=== PATIENT | male | born 2000 | race Caucasian/White ===

== ENCOUNTER 2021-11-13 01:00 | Emergency (ER) | payer OTHER, BC, SELFPAY ==
[2021-11-13 01:01] VITALS: BP 161/84; PULSE 90; RESP 18; TEMP 36.7; O2SAT 98
[2021-11-13 01:02] VITALS: BP 161/84; PULSE 90; RESP 18; TEMP 36.7; O2SAT 98; BMI 27.6
[2021-11-13] MEDS: Cephalexin 250 MG Capsule 500 MG PO (01:23)
--- NOTE | 2021-11-13 01:24 | EX.ED.DYSGE1 ---
HPI History of Present Illness Chief Complaint: Rash Informant: patient Narrative Narrative: Patient is a 20-year-old male without any significant past medical history presenting with rash. Patient started with a spot on his right calf that has now been persistently draining honey colored material. He states it is itchy and uncomfortable. He tried putting on an antifungal cream that he had from a couple years ago from when he had ringworm. Is not helped and now he has other spots patching up in all of his extremities. He states they're slightly itchy but not painful. Does not have any other drainage. No known sick contacts. No mouth sores. No fevers or chills. No other complaints at this time. Patient states about 3 weeks ago he was placed on a course of Bactrim for hemospermia but that has since resolved. Denies any other signs or complaints. PFSH PFSH Home Medications azithromycin [Zithromax] 250 mg PO DAILY #5 tab 04/08/17 [Rx Last Taken Unknown] fexofenadine-pseudoephedrine [Abi-D 12 Hour Tablet] 1 ea PO DAILY 04/08/17 [History Last Taken Unknown] cephalexin 500 mg PO Q6 #28 cap 11/13/21 [Rx Last Taken Unknown] mupirocin 1 applic TOPICAL TID #1 tube 11/13/21 [Rx Last Taken Unknown] Allergy/AdvReac Type Severity Reaction Status Date / Time amoxicillin Allergy Hives Verified 04/08/17 22:25 acetaminophen [From Tylenol] AdvReac Nausea Verified 04/08/17 22:25 Social History Smoking Status: Never smoker ROS ROS ED Constitutional Constitutional ED: Denies chills or fever(s) Eyes Eyes: Reports other Details: No eye discharge ; Denies blurry vision ENT ENT ED: Denies ear pain or sore throat Cardiovascular Cardiovascular: Denies chest pain Respiratory/Chest Respiratory/Chest: Denies dyspnea Musculoskeletal Musculoskeletal: Denies arthralgias or myalgias Integumentary Reports rash; Denies abscess or Abrasions Neurologic Neurologic: Denies headache(s), paresthesias or weakness EXAM Physical Exam Const Vital Signs: 11/13/21 01:01 11/13/21 01:02 11/13/21 01:49 Temperature 98.1 F 98.1 F Temperature Source Temporal Temporal Pulse Rate 90 90 88 Respiratory Rate 18 18 17 Blood Pressure 161/84 H 161/84 H 151/80 H Blood Pressure Mean 109 109 Pulse Ox 98 98 98 Oxygen Delivery Method Room Air Room Air Positive well nourished and well developed General Appearance ED: well developed HEENT Negative for trauma Eyes PERRL and EOMs intact bilaterally Eyes Narrative: Normal conjunctiva, no discharge appreciated Neck supple Neck Narrative: Normal range of motion Resp normal respiratory effort Cardio regular rate Extremity normal to inspection General Extremety ED: Negative for edema or tenderness General Extremity: Negative for edema Neuro oriented x3 Sensorium / Orientation: alert Motor Exam: Negative for general weakness Skin Skin Narrative: Patient has irregular 5 cm diameter circumferential area of erythema with central area of slight desquamation and crusting. No associated lipogenic streaking. No fluctuance or induration appreciated. No warmth. Patient also has scattered subcentimeter irregular areas of erythema that are slightly raised on all other extremities. No confluence is appreciated. No petechia. Negative Nikolsky sign. MDM MDM MDM Narrative Medical decision making narrative: Patient evaluated for 1 week of rash that is worsening and now spreading. The largest area on his right calf appears to have drainage and is consistent with impetigo. I suspect he started have disseminated impetigo. He'll be started on Keflex. He has a history of a rash with amoxicillin as a baby so we will monitor him for about 30 minutes after receiving Keflex to ensure no further allergic reaction. I have a low suspicion of allergic reaction given the low cross-reactivity between cephalosporins and penicillins. Patient is also given a prescription for mupirocin ointment. This does not appear consistent with tinea or other more severe rash. This is not consistent with urticaria. Patient is encouraged to follow-up with his primary care doctor next week for repeat evaluation. He is counseled on return precautions. He verbalized agreement understand this plan. Discharge Plan Triage Chief Complaint: Rash ED Provider: Sheryl Heard Dx/Rx/DC Orders Clinical Impression: Impetigo Instructions: ED Impetigo Prescriptions: New cephalexin [cephalexin] 500 MG capsule 500 mg PO Q6 Qty: 28 RF: 0 mupirocin [mupirocin] 1 APPLIC ointment 1 applic topical TID Qty: 1 RF: 0 No Action fexofenadine-pseudoephedrine [Abi-D 12 Hour] 1 EACH tablet extended release 12 hr 1 ea PO DAILY RF: 0 azithromycin [Zithromax] 250 MG tablet 250 mg PO DAILY Qty: 5 RF: 0 Primary Care Provider: Nestor Rhodes Referrals: Nestor Rhodes DO [Primary Care Provider] - Disposition Disposition: Home, Self Care Discharge Date/Time: 11/13/21 01:50
[2021-11-13 01:49] VITALS: BP 151/80; PULSE 88; RESP 17; O2SAT 98
== END 2021-11-13 01:50 | disposition home or self-care (01) ==
PROVIDERS: Emergency Provider Emergency Medicine; PCP Pediatrics; Visit Provider Emergency Medicine
DX: L01.00 Impetigo, unspecified (principal); Z79.899 Other long term (current) drug therapy
CPT/HCPCS: 99283

== ENCOUNTER 2022-07-13 12:33 | Emergency (ER) | payer OTHER, BC, SELFPAY ==
[2022-07-13 12:35] VITALS: BP 150/104; PULSE 91; RESP 18; TEMP 36.7; O2SAT 99; BMI 27.9
--- NOTE | 2022-07-13 14:48 | EDS_ITS ---
HPI HPI - URI History of Present Illness Chief Complaint: Chest Pain Narrative Narrative: 21-year-old male who is otherwise healthy presenting with chills, body aches, generalized fatigue. This started on Sunday. He was seen yesterday urgent care and put on brompheniramine/Sudafed. He states he had a sore throat initially on Sunday which progressed to sinus pressure. He has not had any nasal discharge. He has not had a fever. He is not coughing or short of breath. He states that his anxiety has sudden and he feels like his chest is tight. He does not have any cardiac problems. No history of DVT/PE and no risk factors. He was tested for strep throat yesterday and this was negative. ROS ROS ED Constitutional Constitutional ED: Reports chills and subjective Eyes Eyes: Denies change in vision or diplopia ENT ENT ED: Reports sore throat; Denies rhinorrhea Cardiovascular Cardiovascular: Reports chest pain Respiratory/Chest Respiratory/Chest: Denies cough or dyspnea Gastrointestinal Gastrointestinal: Denies abdominal pain, nausea or vomiting Genitourinary Genitourinary ED: Denies dysuria or hematuria Musculoskeletal Musculoskeletal: Reports myalgias; Denies arthralgias or back pain Integumentary Denies abscess or Abrasions Neurologic Neurologic: Denies headache(s) or paresthesias Psychiatric Psychiatric: Reports anxiety; Denies depression [facility] Medical History Asthma Home Medications [id number] 2 mg-30 mg-10 mg/5 mL oral syrup 5 ml PO Q8H PRN PRN Cough 07/13/22 [History Last Taken Unknown] Allergy/AdvReac Type Severity Reaction Status Date / Time amoxicillin Allergy Hives Verified 07/13/22 12:34 acetaminophen [From Tylenol] AdvReac Nausea Verified 07/13/22 12:34 Social History Smoking Status: Never smoker EXAM Physical Exam Const Vital Signs: 07/13/22 12:35 07/13/22 13:48 Temperature 98.1 F Temperature Source Temporal Pulse Rate 91 Respiratory Rate 18 Respiratory Effort Normal Non-Labored Blood Pressure 150/104 H Blood Pressure Mean 119 Pulse Ox 99 Oxygen Delivery Method Room Air Positive well nourished General Appearance ED: NAD; Negative for pallor HEENT Reports moist mucous membranes normocephalic and atraumatic Throat: posterior oropharynx normal Eyes General Eye ED: Negative for pale conjunctiva or scleral icterus Neck no lymphadenopathy, supple and no meningeal signs Resp normal respiratory effort and clear to auscultation bilaterally Cardio Rate: regular rate Rhythm: regular rhythm GI non-tender Extremity normal to inspection Neuro oriented x3 and CN's II-XII intact bilaterally Sensorium / Orientation: alert Motor Exam: strength 5/5 throughout Psych mental status grossly normal Skin General Skin Exam: Negative for jaundice or pallor MDM MDM MDM Narrative Medical decision making narrative: Patient presenting with chills, body aches, generalized fatigue. He had some sinus pressure that progressed from a sore throat. He is already been tested for strep and this was negative. His HEENT exam is unremarkable. Lungs are cl ear to auscultation bilaterally. His vital signs are normal with exception of a little bit of elevated blood pressure on his initial reading. He did have a rapid COVID and flu swab done today which were negative. I counseled him this is likely viral. I do not think he needs a chest x-ray or cardiac work-up. He agrees. I counseled he will need to rest, stay well-hydrated, alternate Tylenol and ibuprofen. He can take the medication the urgent care gave him. He will probably flareup in 5 to 7 days. Return precautions were discussed. Impression: 1. Chest tightness 2. Viral syndrome Discharge Plan Triage Chief Complaint: Chest Pain ED Provider: Gene Gaines Dx/Rx/DC Orders Instructions: ED Viral Syndrome (Adult) Prescriptions: No Action [id number] 2-30-10 mg/5 mL syrup 5 ml PO Q8H PRN PRN (Reason: Cough) Primary Care Provider: Nestor Rhodes Referrals: Nestor Rhodes DO [Primary Care Provider] - Disposition Disposition: Home, Self Care
== END 2022-07-13 15:30 | disposition home or self-care (01) ==
PROVIDERS: Emergency Provider Student in an Organized Health Care Education/Training Program; PCP Pediatrics; Visit Provider Student in an Organized Health Care Education/Training Program
DX: R07.89 Other chest pain (principal); B34.9 Viral infection, unspecified; Z20.822 Contact with and (suspected) exposure to COVID-19
CPT/HCPCS: 87428; 93005; 99282; A4216

== ENCOUNTER 2023-10-16 06:39 | Emergency (ER) | payer OTHER, BC, SELFPAY ==
[2023-10-16 06:42] VITALS: BP 150/76; PULSE 74; RESP 16; TEMP 36.4; O2SAT 98; BMI 32.3
--- NOTE | 2023-10-16 07:32 | EX.ED.VIS.EY ---
HPI History of Present Illness Chief Complaint: Eye Problem Informant: patient Narrative Narrative: Given exposure bilateral eyes. Works in garage, hydraulic fluid splash. He is wearing his visual glasses. He states a little bit got his eyes. This happened an hour ago. He rinsed with saline. Very minimal symptoms at this time. No blurry vision. No pain. Prior similar symptoms: No PFSH PFSH Medical History Asthma Home Medications pantoprazole 20 mg tablet,delayed release (Protonix) 20 mg PO DAILY 10/16/23 [History Last Taken Unknown] Allergy/AdvReac Type Severity Reaction Status Date / Time amoxicillin Allergy Hives Verified 10/16/23 06:40 acetaminophen [From Tylenol] AdvReac Nausea Verified 10/16/23 06:40 Social History Smoking Status: Never smoker ROS ROS ED Constitutional Constitutional ED: Denies chills, fever(s) or sweats Eyes Eyes: Reports other Details: splash to eyes ; Denies blurry vision or change in vision ENT ENT ED: Denies dysphagia or sore throat Cardiovascular Cardiovascular: Denies chest pain, leg edema, palpitations or racing heartbeat Respiratory/Chest Respiratory/Chest: Denies cough, dyspnea or dyspnea on exertion Gastrointestinal Gastrointestinal: Denies abdominal pain, diarrhea, nausea or vomiting Genitourinary Genitourinary ED: Denies dysuria, hematuria or urinary frequency Musculoskeletal Musculoskeletal: Denies back pain, extremity pain or neck pain Integumentary Denies rash or wounds Neurologic Neurologic: Denies headache(s), paresthesias or weakness EXAM Physical Exam Const Vital Signs: 10/16/23 06:42 Temperature 97.6 F L Temperature Source Temporal Pulse Rate 74 Respiratory Rate 16 Blood Pressure 150/76 H Blood Pressure Mean 100 Pulse Ox 98 Oxygen Delivery Method Room Air Positive well nourished and well developed General Appearance ED: well developed and NAD HEENT Reports moist mucous membranes normocephalic and atraumatic Eyes PERRL, EOMs intact bilaterally and conjunctivae normal Eyes Narrative: No erythema. pH was 7 bilaterally. General Eye ED: Yes normal appearance of both eyes Neck no lymphadenopathy and supple General: Negative for tenderness Chest Wall Chest: Negative for tenderness Resp normal respiratory effort and normal air movement Effort and Inspection: symmetric chest movement; Negative for respiratory distress Cardio regular rate, regular rhythm and no murmurs Peripheral Pulses: pulses 2+ throughout GI normal to inspection, nondistended, normoactive bowel sounds and non-tender Palpation: Negative for guarding or rebound tenderness present Back/Spine no CVA tenderness and no thoracic nor lumbar tenderness Extremity normal to inspection General Extremety ED: Negative for edema or tenderness General Extremity: Negative for edema Neuro oriented x3 and no sensory deficits noted Sensorium / Orientation: awake and alert Skin no rashes or lesions noted and no wounds MDM MDM MDM Narrative Medical decision making narrative: Interventions / MDM: Differential diagnosis: Chemical splash, chemical exposure Diagnosis considered but do not suspect: No clinical conjunctivitis My EKG interpretation: N/A Imaging independently reviewed and interpreted by myself: N/A External documents reviewed: N/A Test considered but not ordered:N/A ED course: Vital stable nontoxic. pH performed 7 bilaterally. He will use rewetting drops as needed. He is cleared back to work. He will follow-up with occupational health. All questions were answered. Re-evaluation: stable Disposition discussed with patient/family/significant other: Patient Case discussed with consulting clinician: N/A This note was generated with [employer] dictation software. It may contain incorrect words, spelling, and punctuation that were not noted in checking the note before signing. Discharge Plan Triage Chief Complaint: Eye Problem ED Provider: Levi Jerry Dx/Rx/DC Orders Clinical Impression: Chemical exposure of eye Instructions: ED Eye Exposure, Chemical Prescriptions: No Action pantoprazole [Protonix] 20 mg tablet,delayed release (DR/EC) 20 mg PO DAILY Primary Care Provider: Care Physician,No Primary Referrals: Care Physician,No Primary [Primary Care Provider] - Activity Restrictions/Additional Instructions: pH is 7 bilaterally. Use rewetting drops as needed. Disposition Disposition: Home, Self Care Discharge Date/Time: 10/16/23 07:45
--- OUTSIDE RECORDS SUMMARY | 2023-10-16 07:49 | XMS RPT_ITS | CCD ---
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 HISTORY Diagnosis Date Environmental allergies NEGATIVE MEDICAL HISTORY PAST SURGICAL HISTORY Procedure Laterality Date NONE Allergies: ALLERGIES Allergen Reactions Amoxicillin Hives Tylenol [Acetaminop* Vomiting Medications: fexofenadine HCl (GUZMAN ALLERGY ORAL) Take by mouth. albuterol-budesonide HFA (AIRSUPRA) 90-80 mcg/actuation inhaler Take 2 Puffs by mouth. Do not take more than 12 inhalations in a 24 hour period. FAMILY HISTORY Problem Relation Age of Onset Kidney Disease Mother other (amyloidois) Mother Asthma Maternal Grandmother Heart Maternal Grandfather Diabetes Maternal Grandfather Employer And Job Title: None on file Years Of Education Completed: Not specified Marital Status: Social History Tobacco Use Smoking status: Never Passive exposure: Yes Smokeless tobacco: Never Tobacco comments: dad smokes outside only Vaping Use Vaping Use: Never used Substance Use Topics Alcohol use: Yes Drug use: No Review of Systems: Review of Systems HENT: Positive for trouble swallowing. Respiratory: Positive for choking and wheezing. Gastrointestinal: Heartburn All other systems reviewed and are negative. Are you taking any blood thinners? No Physical Examination: BP 140/80 Pulse 84 Ht 177.8 cm (5' 10 ) Wt 97.1 kg (214 lb) BMI 30.71 kg/m Physical Exam Constitutional: General: He is not in acute distress. Appearance: Normal appearance. He is normal weight. He is not ill-appearing, toxic-appearing or diaphoretic. HENT: Head: Normocephalic and atraumatic. Nose: Nose normal. Eyes: General: No scleral icterus. Right eye: No discharge. Left eye: No discharge. Extraocular Movements: Extraocular movements intact. Conjunctiva/sclera: Conjunctivae normal. Pupils: Pupils are equal, round, and reactive to light. Cardiovascular: Rate and Rhythm: Normal rate and regular rhythm. Pulses: Normal pulses. Heart sounds: Normal heart sounds. No murmur heard. No friction rub. No gallop. Pulmonary: Effort: No respiratory distress. Breath sounds: Normal breath sounds. No stridor. No wheezing, rhonchi or rales. Chest: Chest wall: No tenderness. Abdominal: General: Abdomen is flat. Bowel sounds are normal. There is no distension. Palpations: Abdomen is soft. There is no mass. Tenderness: There is no abdominal tenderness. There is no right CVA tenderness, left CVA tenderness, guarding or rebound. Hernia: No hernia is present. Musculoskeletal: General: Normal range of motion. Cervical back: Normal range of motion and neck supple. Skin: General: Skin is warm and dry. Neurological: General: No focal deficit present. Mental Status: He is alert and oriented to person, place, and time. Psychiatric: Mood and Affect: Mood normal. Behavior: Behavior normal. Assessment/Plan (R13.14) Pharyngoesophageal dysphagia (primary encounter diagnosis) 1. Pharyngoesophageal dysphagia - EGD DIAGNOSTIC; Future - EGD +/- dilation, r/o EoE, active GERD - Discussed swallowing precautions and provided printed edu handout - Takes Tums 1-2x per month for heartburn with relief I spent a total of 15 minutes on the date of the service which included preparing to see the patient, [id number] patient care, completing clinical documentation, obtaining and/or reviewing separately obtained history, performing a medically appropriate examination, counseling and educating the patient/family/caregiver, ordering medications, tests, or procedures, communicating with other HCPs (not separately reported), independently interpreting results (not separately reported), communicating results to the patient/family/caregiver, and care coordination (not separately reported). Virginia Stewart PA-C August 13, 2023 11:34 AM documented in this encounter [facility] 05-02-2023 Note HNO ID: [id number] Author: Jacek Boland, DO Service: ? Author Type: Physician Type: Progress Notes Filed: 05/02/2023 9:05 AM Note Text: 22 year old male here for evaluation of sensation of food getting stuck in throat at times, mostly with foods like steak, beef and chicken. Has to drink water quickly to get food to wash down. Claritae has had to do Heimlick maneuver Twice on him. Does feel like he gets acid reflux at times but not on medication. No vomiting. No diarrhea or constipation. He does have intermittent anxiety. Getting in July so a lot of stress with wedding planning. Mom is on renal transplant list. Asking about screening tests for diabetes, renal function given mom's history of kidney disease. REVIEW OF SYSTEMS GENERAL: No weight loss, malaise or fevers HEENT: Negative for frequent or significant headaches, No changes in hearing or vision, no nose bleeds or other nasal problems NECK: Negative for lumps, goiter, pain and significant neck swelling RESPIRATORY: Negative for cough, hemoptysis, wheezing, COPD, dyspnea or shortness of breath CARDIOVASCULAR: Negative for chest pain, leg swelling, hypertension, CHF or palpitations GI: See HPI : No history of dysuria, frequency or incontinence MUSCULOSKELETAL: Negative for joint pain or swelling, back pain or muscle pain HEMATOLOGY/LYMPHOLOGY: Negative for prolonged bleeding, bruising easily or swollen nodes ENDOCRINE: Negative for cold or heat intolerance, polyuria, polydipsia and goiter NEURO: No history of headaches, syncope, paralysis, seizures or tremors Physical Exam: Alert, active, in no distress Head: Normocephalic and atraumatic HEENT: Pupils equal and reactive to light, extraocular muscles intact. Tympanic membranes clear with good landmarks. Pharynx pink and moist without exudates or erosions Neck: no adenopathy Lungs: Clear to auscultation with good air exchange. No grunting flaring or retractions Heart: Regular rate and rhythm with normal s1 S2 femoral pulses present Abdomen: Soft, nontender with good bowel sounds in all 4 quadrants. 2 small lipomas on abdominal wall no hepatosplenomegaly Extremities: well perfused. Capillary refill less than 3 seconds Assess: dysphagia with sensation of food getting stuck Family history of diabetes and renal disease Plan; Refer to gastroenterology for evaluation CMP and lipid panel ordered Prevacid 15 mg daily Discussed health care transition to adult care provider Jacek Boland DO [facility] [place] 04-17-2023 Miscellaneous Notes Please triage. I don't see where he is on any medications. Is there something in particular That he is concerned about? He is 22 years old and will need to start transitioning to adult care provider. Jacek Boland DO Discussed with patient. No concerns-he will discuss preferred adult providers at [facility] with Carmelo. Patient verbalizes understanding and has no other questions or concerns at this time.. Me Do we have an update on this? Pt has physical 06/[address] blood work to be done beforehand per patient documented in this encounter [facility] 10-18-2022 Miscellaneous Notes See triage Please triage. documented in this encounter [facility] 07-12-2022 Instructions Magali Aguila APRN.OPTICAL FABRICATOR - 07/12/2022 3:31 PM EDT Rest, increase water intake Motrin or Tylenol as needed for fever or pain. Salt water gargles, chloraseptic spray or lozenges as needed for sore throat. Warm beverages, honey. Nasal saline spray as needed Cool mist humidifier at night A cold normally lasts 7-10 days. If your symptoms are lasting longer, develop fever, or worsening by that time instead of improving then return to clinic or follow up with PCP for re-evaluation. DO NOT take any other OTC cough or cold medication while taking the prescription Bromfed DM. May use advil aleve ibuprofen or tylenol Flonase or Nasonex 2 sprays in each nostril once a day documented in this encounter [facility] 07-12-2022 History of Present illness Narrative Subjective The history is provided by the patient. No wood heel back liner was used. HPI Gray Farmer is a 21 year old male who presents today for CC of sore throat that started in past 24 hours. He is also having sinus pressure, and nasal congestion. He has used Mucinex, with out relief. He denies any known exposure. Declines testing for covid. BP 130/74 Pulse 102 Temp 36.7 C (98.1 F) (Tympanic) Resp 16 Wt 92.6 kg (204 lb 3.2 oz) SpO2 97% BMI 29.30 kg/m Social History Tobacco Use Smoking status: Passive Smoke Exposure - Never Smoker Smokeless tobacco: Never Tobacco comments: dad smokes outside only Substance Use Topics Alcohol use: No Drug use: No PAST MEDICAL HISTORY Diagnosis Date Environmental allergies NEGATIVE MEDICAL HISTORY I have confirmed and edited as necessary, the [facility] Review of Systems Constitutional: Negative for chills and fever. HENT: Positive for congestion, ear pain (pressure), sinus pain and sore throat. Respiratory: Negative for cough, sputum production, shortness of breath and wheezing. Cardiovascular: Negative for chest pain. Musculoskeletal: Negative for myalgias. Neurological: Positive for headaches. Objective Physical Exam Vitals and nursing note reviewed. Constitutional: Appearance: He is not toxic-appearing. HENT: Head: Normocephalic and atraumatic. Right Ear: Ear canal and external ear normal. A middle ear effusion (serous) is present. Tympanic membrane is bulging. Left Ear: Ear canal and external ear normal. A middle ear effusion (serous) is present. Tympanic membrane is bulging. Nose: Mucosal edema, congestion and rhinorrhea present. Right Sinus: No maxillary sinus tenderness or frontal sinus tenderness. Left Sinus: No maxillary sinus tenderness or frontal sinus tenderness. Mouth/Throat: Pharynx: Uvula midline. No oropharyngeal exudate or posterior oropharyngeal erythema. Tonsils: No tonsillar abscesses. Cardiovascular: Rate and Rhythm: Normal rate and regular rhythm. Heart sounds: Normal heart sounds. Pulmonary: Effort: Pulmonary effort is normal. Breath sounds: Normal breath sounds. No decreased breath sounds, wheezing, rhonchi or rales. Lymphadenopathy: Head: Right side of head: No submental, submandibular, tonsillar or preauricular adenopathy. Left side of head: No submental, submandibular, tonsillar or preauricular adenopathy. Cervical: No cervical adenopathy. Right cervical: No superficial cervical adenopathy. Left cervical: No superficial cervical adenopathy. Neurological: Mental Status: He is alert. ASSESSMENT/PLAN: 1. Sore throat - ICD9: 462, ICD10: J02.9 (primary diagnosis) - suspect viral - Alere Strep Test negative, no culture pending - Discussed supportive care treatment with fluids, rest and analgesia. - The patient may also use warm salt water gargles, throat lozenges and/or OTC throat spray as needed. - STREP A MOLECULAR (POC) 2. Nasal congestion - ICD9: 478.19, ICD10: R09.81 3. Sinus pressure - ICD9: 478.19, ICD10: J34.89 4. URI, acute - ICD9: 465.9, ICD10: J06.9 - Discussed viral etiology and rationale for treatment. - Symptomatic treatment with prn analgesia - Supportive care with fluids and rest - Bromfed as ordered - See Patient instructions for comfort measures. Diagnosis and treatment plan were discussed and questions were answered to the patient's satisfaction. Pt acknowledged understanding of concepts and follow up plan. Specific signs and symptoms that would indicate the need for higher level of care were discussed in detail warranting prompt ER evaluation. Magali Aguila APRN.CNP documented in this encounter [facility] 03-29-2022 Miscellaneous Notes If still having blood in semen needs to see TIGRE Pt Advised of MRI And asking what the next steps are Since MRI is negative for the blood in semen pt states you can message him in my chart Left message for patient to return call to office. Josy Parks Cma ----- Message from Loli Ortega DO sent at 03/29/2022 1:25 PM EDT ----- No problems with MRI documented in this encounter [facility] 03-09-2022 Note HNO ID: [id number] Author: RT Aman(R) Service: Radiology Author Type: Tie Man Type: Progress Notes Filed: 03/09/2022 9:35 AM Note Text: Radiology Service Progress Note DATE OF SERVICE: March 09, 2022 TIME: 9:34 AM PATIENT IDENTITY VERIFICATION COMPLETED USING TWO (2) STANDARD IDENTIFIERS: Name and Date of confirmed by patient verbally. FALL SCREENING: Has the patient had 2 falls in the last year or 1 fall with injury or currently using an Ambulatory Assistive Device (Walker, Cane, Wheelchair, Crutches, etc.)? No PATIENT GENDER DATA: Male PATIENT RELEVANT IMPLANT DATA REVIEWED: Yes ALLERGIES: Reviewed and unchanged CONTRAST ALLERGY: NO. EXAM: MRI - CONTRAST TYPE: GROUP II PERIPHERAL IV DATA: Ambulatory: A peripheral IV was started in the Left antecubital site with a Angio cath: 22 gauge. RADIOLOGY DEPARTMENT: MR; Exam(s) Completed: Body: Prostate SIGNATURE: RT Aman(R) PATIENT NAME: Gray Farmer DATE: March 09, 2022 TIME: 9:34 AM [facility] 03-09-2022 History of Present illness Narrative Radiology Service Progress Note DATE OF SERVICE: March 09, 2022 TIME: 9:34 AM PATIENT IDENTITY VERIFICATION COMPLETED USING TWO (2) STANDARD IDENTIFIERS: Name and Date of confirmed by patient verbally. FALL SCREENING: Has the patient had 2 falls in the last year or 1 fall with injury or currently using an Ambulatory Assistive Device (Walker, Cane, Wheelchair, Crutches, etc.)? No PATIENT GENDER DATA: Male PATIENT RELEVANT IMPLANT DATA REVIEWED: Yes ALLERGIES: Reviewed and unchanged CONTRAST ALLERGY: NO. EXAM: MRI - CONTRAST TYPE: GROUP II PERIPHERAL IV DATA: Ambulatory: A peripheral IV was started in the Left antecubital site with a Angio cath: 22 gauge. RADIOLOGY DEPARTMENT: MR; Exam(s) Completed: Body: Prostate SIGNATURE: RT Aman(R) PATIENT NAME: Gray Farmer DATE: March 09, 2022 TIME: 9:34 AM documented in this encounter [facility] 02-20-2022 History of Present illness Narrative Images from the original note were not included. Asthma Home Monitoring Program Breathe Well Outreach Provider Action/FYI: Dr Boland - please review and advise if in agreement with drafted Asthma Action Plan below as patient's health maintenance is flagging due. ACT recently conducted was 22. February 03, 2022 Asthma Action Plan for Gray Farmer GREEN ZONE = GOOD Use these medications everyday! Breathing is good None YELLOW ZONE = CAUTION (An asthma attack is starting) Keep taking your GREEN ZONE medications and add a rescue medication. Cough, wheeze Chest tightness Shortness of breath First sign of a cold FIRST: Albuterol inhaler (Proair or Ventolin): inhale 2 puffs every 4 hours as needed for symptoms. If it has been more than 2 weeks since you last used albuterol please PRIME your inhaler SECOND: If better within an hour, return to green zone If not better in an hour or still needing rescue inhaler in 48 hours, call your provider at [phone]) Start oral steroids: Call if needing to start oral steroids RED ZONE = DANGER Serious asthma attack CALL YOUR PROVIDER NOW! Lots of problems breathing. Albuterol not helping or not lasting 4 hours Hard to walk or talk Ribs or neck muscles show when breathing in Nasal flaring Lips or fingernails turn blue FIRST: Albuterol inhaler: 2 puffs every 15 minutes for 3 doses SECOND: If better continue albuterol every 4 hours If not improved after 15 minutes: GO TO THE EMERGENCY ROOM OR CALL 911 Jacek Boland DO Reason for outreach: Follow up and Asthma Action Plan SIGNATURE: Elsa Palmer RN PATIENT NAME: Gray Farmer DATE: February 20, 2022 TIME: 3:05 PM Images from the original note were not included. Asthma Home Monitoring Program Breathe Well Outreach Provider Action/FYI: Dr Boland - please review asthma action plan below (also ACT received and 22) February 03, 2022 Asthma Action Plan for Gray Farmer GREEN ZONE = GOOD Use these medications everyday! Breathing is good None YELLOW ZONE = CAUTION (An asthma attack is starting) Keep taking your GREEN ZONE medications and add a rescue medication. Cough, wheeze Chest tightness Shortness of breath First sign of a cold FIRST: Albuterol inhaler (Proair or Ventolin): inhale 2 puffs every 4 hours as needed for symptoms. If it has been more than 2 weeks since you last used albuterol please PRIME your inhaler SECOND: If better within an hour, return to green zone If not better in an hour or still needing rescue inhaler in 48 hours, call your provider at [phone]) Start oral steroids: Call if needing to start oral steroids RED ZONE = DANGER Serious asthma attack CALL YOUR PROVIDER NOW! Lots of problems breathing. Albuterol not helping or not lasting 4 hours Hard to walk or talk Ribs or neck muscles show when breathing in Nasal flaring Lips or fingernails turn blue FIRST: Albuterol inhaler: 2 puffs every 15 minutes for 3 doses SECOND: If better continue albuterol every 4 hours If not improved after 15 minutes: GO TO THE EMERGENCY ROOM OR CALL 911 Jacek Boland, DO PCP office - please conduct Asthma Control Test as patient is due. Thank you Patient is currently not eligible for Pediatric Breathe Well Asthma Home Monitoring Program. Patient is not followed by specialty care for asthma. Has not had a prednisone course in the last 6 months. Has not had an admission or ED visit for asthma in the last 12 months. Last ACT on file above 19 indicating well managed asthma. No obvious SDH. However, patient is due for an asthma control test at this time. Per new workflows, RN will route this patients chart to PCP office to complete Asthma Control Test via Phone Call as patient is not due for a WCC but due for Asthma Control Test. If ACT score is 19 or less, please address immediate concerns and route chart to RN PCC for enrollment into Pediatric Breathe Well Program as patient would then qualify. Also due for Asthma Action Plan - RN will Draft and route to PCP for review. Last PCP visit 12/12/2021 (sick visit) Pre employment physical at urgent care 04/[address] Gunn 10/25/2018 Reason for outreach: Health Maintenance Contact made: No contact at this time. SIGNATURE: Elsa Palmer RN PATIENT NAME: Gray Farmer DATE: February 03, 2022 TIME: 9:46 AM documented in this encounter [facility] 02-06-2022 Instructions Almita Dickens APRN.OPTICAL FABRICATOR - 02/06/2022 7:33 PM EDT ASSESSMENT/PLAN: 1. Cervical radiculopathy - ICD9: 723.4, ICD10: M54.12 (primary diagnosis) - XR CERV OTHER 4V AP/LAT/OBL Radiologist RESULT: Alignment: No significant subluxation or scoliosis. Bones: Vertebral bodies and the other included bony structures are negative. Intervertebral discs: Included intervertebral disc spaces are preserved. No osteophytes foramina encroachment noted. Prevertebral soft tissues are within normal limits. LEFT SHOULDER X-RAY SERIES CLINICAL HISTORY: Cervical radiculopathy TECHNIQUE: AP, Grashey, and axillary views COMPARISON: None available. RESULT: No fracture or malalignment. Joint spaces and articular surfaces are preserved. IMPRESSION: Cervical spine: Negative. Left shoulder: Negative. Rn Neonatal Icu: RADHA Transcribe Date/Time: Feb 06 2022 7:23P Dictated by : VANCE MARTÍNEZ MD - Prednisone as prescribed. 2. Acute pain of left shoulder - ICD9: 719.41, ICD10: M25.512 - XR SHOULDER GENERAL 3V OR MORE AP/TRUE AP/OTHER LEFT- See above for radiology interpretation. - Follow-up with your PCP in 3-5 days if symptoms have not improved or sooner if symptoms worsen - Discussed red flags and need for immediate medical evaluation if any occur. - Discussed supportive care treatment with rest and analgesia. - Discussed expected course of illness Almita Dickens APRN.OPTICAL FABRICATOR documented in this encounter [facility] 02-06-2022 History of Present illness Narrative Subjective HPI Gray Farmer is a 21 year old male who presents with left arm pain for the past month. The pain originates from his left shoulder/neck area and radiates to the upper arm. He denies any known injury. He describes the pain as aching, numb/tingly, and tight . He states he noticed it today more than usual and just got tired of it. He occasionally has a popping sensation in his left shoulder. He denies any loss of strength. He has full range of motion. Review of Systems Constitutional: Negative for chills and fever. Respiratory: Negative for shortness of breath. Cardiovascular: Negative for chest pain. Musculoskeletal: Positive for joint pain and neck pain. Negative for falls. Skin: Negative for rash. Neurological: Positive for tingling. Negative for tremors, sensory change and weakness. BP 122/82 Pulse 95 Temp 36.5 C (97.7 F) Resp 21 Wt 91.5 kg (201 lb 12.8 oz) SpO2 99% BMI 28.96 kg/m PAST MEDICAL HISTORY Diagnosis Date Environmental allergies NEGATIVE MEDICAL HISTORY PAST SURGICAL HISTORY Procedure Laterality Date NONE ALLERGIES Amoxicillin and Tylenol [Acetaminophen] MEDICATIONS albuterol HFA (PROVENTIL HFA, VENTOLIN HFA) 90 mcg/actuation inhaler Inhale 2 Puffs as instructed every 4 hours as needed for Wheezing/Shortness of Breath. albuterol (PROVENTIL) 2.5 mg /3 mL (0.083 %) nebulizer solution Use 3 mL via nebulizer every 4 hours as needed for Wheezing/Shortness of Breath. Use over 5-15minutes. iv contrast (will be provided with radiology test) MRI Prostate Inject, intravenously, once for 1 dose. No IV access, insert saline lock prior to the beginning of sedation, infusion, injection of imaging exam. Discontinue saline lock post exam. If Pt. has a central line or IVAD, may access for administration according to line specific nursing protocol. Once exam is complete flush line and de-access according to line specific nursing protocol in the MR contrast administration guidelines link. benzonatate (TESSALON PERLE) 100 mg capsule TAKE 1 CAPSULE BY MOUTH THREE TIMES A DAY NEEDED FAMILY HISTORY Problem Relation Age of Onset Kidney Disease Mother other (amyloidois) Mother Asthma Maternal Grandmother Heart Maternal Grandfather Diabetes Maternal Grandfather Social History Tobacco Use Smoking status: Passive Smoke Exposure - Never Smoker Smokeless tobacco: Never Used Tobacco comment: dad smokes outside only Substance Use Topics Alcohol use: No Drug use: No Objective Physical Exam Vitals and nursing note reviewed. Constitutional: Appearance: Normal appearance. Musculoskeletal: General: Tenderness present. No signs of injury. Skin: General: Skin is warm and dry. Findings: No erythema or rash. Neurological: Mental Status: He is alert. ASSESSMENT/PLAN: 1. Cervical radiculopathy - ICD9: 723.4, ICD10: M54.12 (primary diagnosis) - XR CERV OTHER 4V AP/LAT/OBL Radiologist RESULT: Alignment: No significant subluxation or scoliosis. Bones: Vertebral bodies and the other included bony structures are negative. Intervertebral discs: Included intervertebral disc spaces are preserved. No osteophytes foramina encroachment noted. Prevertebral soft tissues are within normal limits. LEFT SHOULDER X-RAY SERIES CLINICAL HISTORY: Cervical radiculopathy TECHNIQUE: AP, Grashey, and axillary views COMPARISON: None available. RESULT: No fracture or malalignment. Joint spaces and articular surfaces are preserved. IMPRESSION: Cervical spine: Negative. Left shoulder: Negative. Rn Neonatal Icu: RADHA Transcribe Date/Time: Feb 06 2022 7:23P Dictated by : VANCE MARTÍNEZ MD - Prednisone as prescribed. 2. Acute pain of left shoulder - ICD9: 719.41, ICD10: M25.512 - XR SHOULDER GENERAL 3V OR MORE AP/TRUE AP/OTHER LEFT- See above for radiology interpretation. - Follow-up with your PCP in 3-5 days if symptoms have not improved or sooner if symptoms worsen - Discussed red flags and need for immediate medical evaluation if any occur. - Discussed supportive care treatment with rest and analgesia. - Discussed expected course of illness Almita Dickens APRN.OPTICAL FABRICATOR documented in this encounter [facility] 12-23-2021 Note HNO ID: [id number] Author: DUANE Borjas Service: Radiology Author Type: Technologist Type: Progress Notes Filed: 12/23/2021 8:52 AM Note Text: Radiology Service Progress Note PATIENT NAME: Gray Farmer DATE OF SERVICE: December 23, 2021 TIME: 8:52 AM PATIENT IDENTITY VERIFICATION COMPLETED USING TWO (2) IDENTIFIERS: Name and Date of confirmed by patient verbally. FALL SCREENING: Has the patient had 2 falls in the last year or 1 fall with injury or currently using an Ambulatory Assistive Device (Walker, Cane, Wheelchair, Crutches, etc.)? No PATIENT GENDER DATA: Male PATIENT RELEVANT IMPLANT DATA REVIEWED: Not Applicable RADIOLOGY DEPARTMENT: Ultrasound PERIPHERAL IV DATA: Not applicable SIGNED BY: DUANE Borjas December 23, 2021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
== END 2023-10-16 07:45 | disposition home or self-care (01) ==
LOC: ED 07:40
PROVIDERS: Emergency Provider Emergency Medicine; Visit Provider Emergency Medicine
DX: Z77.098 Contact with and (suspected) exposure to other hazardous, chiefly nonmedicinal, chemicals (principal); Z57.5 Occupational exposure to toxic agents in other industries; J45.909 Unspecified asthma, uncomplicated
CPT/HCPCS: 99282

== ENCOUNTER → 2023-12-08 | Outpatient (CLI) | payer OTHER, BC, SELFPAY ==
--- OUTSIDE RECORDS SUMMARY | 2023-12-08 09:20 | XMS RPT_ITS | CCD ---
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 Specialty Start Date End Date Jcaek Boland DO [address] [id number] PCP - General 07/29/02 Animal Behaviorist Relationship Specialty Start Date End Date Jacek Boland DO [address] [address] [place] [address] PCP - General 07/29/02 Animal Behaviorist Relationship Specialty Start Date End Date Jacek Boland, DO [address] [facility] [place] [address] PCP - General 07/29/02 Animal Behaviorist Relationship Specialty Start Date End Date Jacek Boland, DO [address] [address] [place] [address] PCP - General 07/29/02 Animal Behaviorist Relationship Specialty Start Date End Date Jacek Boland, DO [address] [address] [facility] [place] [address] PCP - General 07/29/02 Animal Behaviorist Relationship Specialty Start Date End Date Jacek Boland DO [address] [address] [place] [address] PCP - General 07/29/02 Animal Behaviorist Relationship Specialty Start Date End Date Jacek Boland DO [address] [address] [address] [facility] [place] [address] PCP - General 07/29/02 FOR RECORDS PERTAINING [...] BE BASED ON THE PRIMARY CLINICAL RECORDS. [facility]. provides no warranty or guarantee of the accuracy or completeness of information in this document.
[2023-12-13 01:07] LABS: Clam <0.10 kU/L (Class 0); Codfish <0.10 kU/L (Class 0); Corn <0.10 kU/L (Class 0); Egg, White 1.04 kU/L (Class II); Milk (Cow) 0.41 kU/L (Class I); Peanut <0.10 kU/L (Class 0); SCALLOP <0.10 kU/L (Class 0); SESAME SEED <0.10 kU/L (Class 0); Shrimp <0.10 kU/L (Class 0); Soybean <0.10 kU/L (Class 0); Walnut, (Food) <0.10 kU/L (Class 0); Wheat <0.10 kU/L (Class 0)
== END | disposition home or self-care (01) ==
PROVIDERS: PCP Nurse Practitioner Family; Referring Provider Otolaryngology; Visit Provider Otolaryngology
DX: T78.40XA Allergy, unspecified, initial encounter (principal); X58.XXXA Exposure to other specified factors, initial encounter
CPT/HCPCS: 36415; 86003